=== PATIENT | female | born 1975 | race American Indian/Alaskan Native ===

== ENCOUNTER 2016-11-13 09:44 | Inpatient (IN) | payer MEDICAID ==
[2016-11-13] MEDS ORDERED: ANTIVERT PO ONE (10:10)
[2016-11-13] MEDS ORDERED: TYLENOL PO ONE (10:12)
--- NOTE | 2016-11-13 10:20 | Emergency Department Report ---
Chief Complaint: Headache Stated Complaint: CHUCK/DIZZINESS/BLURRED VISION Time Seen by Provider: 11/13/16 10:00 - Exam Vital Signs: Vital Signs 11/13/16 09:52 Temperature 98.7 F Pulse Rate 82 Respiratory 19 Rate Blood Pressure 149/103 O2 Sat by Pulse 100 Oximetry MSE screening note: Focused history and physical exam performed. Due to findings the following was ordered: ED Disposition for MSE Condition: Stable
[2016-11-13 10:43] LABS: Basophils % (Auto) 0.6 % (0.0-1.8); Eosinophils % (Auto) 1.2 % (0.0-4.3); Hematocrit 40.2 % (30.3-42.9); Hemoglobin 13.3 gm/dl (10.1-14.3); Mean Corpuscular HGB Conc 33 % (30-34); Mean Corpuscular Hemoglobin 30 pg (28-32); Mean Corpuscular Volume 90 fl (79-97); Platelet Count 226 K/mm3 (140-440); Red Blood Count 4.49 M/mm3 (3.65-5.03); Red Cell Distribution Width 14.3 % (13.2-15.2); White Blood Count 5.2 K/mm3 (4.5-11.0)
[2016-11-13 10:49] LABS: INR 0.89 (0.87-1.13)
[2016-11-13 11:02] LABS: Alanine Aminotransferase 14 units/L (7-56); Albumin 4.1 g/dL (3.9-5); Alkaline Phosphatase 105 units/L (35-129); Anion Gap 17 mmol/L; BUN/Creatinine Ratio 12.85; Bilirubin,Total 0.3 mg/dL (0.1-1.2); Blood Urea Nitrogen 9 mg/dL (7-17); Calcium 8.6 mg/dL (8.4-10.2); Carbon Dioxide 22 mmol/L (22-30); Chloride 100.2 mmol/L (98-107); Creatine Kinase 111 units/L (30-135); Glucose 89 mg/dL (65-100); Potassium 4.1 mmol/L (3.6-5.0); Sodium 135 mmol/L (137-145); Total Protein 8.3 g/dL (6.3-8.2)
[2016-11-13 11:25] LABS: Creatine Kinase MB < 1.0 ng/mL (0.0-4.0)
--- NOTE | 2016-11-13 11:59 | Cat Scan Report ---
CT HEAD WITHOUT CONTRAST: HISTORY: Syncope, Headache. Serial contiguous axial images were obtained through the cranium. Intravenous contrast material was not administered. The ventricles are normal in size and appearance. There is no mass effect or midline shift. No areas of abnormally increased or decreased attenuation are seen. No mass lesion is seen. The mastoid air cells and visualized portions of the sinuses are normal. IMPRESSION: Cranial CT scan within normal limits.
[2016-11-13] MEDS ORDERED: TYLENOL ONE (13:34)
[2016-11-13] MEDS ORDERED: ANTIVERT ONE (13:35)
[2016-11-13] MEDS ORDERED: ASPIRIN PO ONE (14:20)
--- NOTE | 2016-11-13 14:29 | Emergency Department Report ---
HPI - General Chief Complaint: Headache Time Seen by Provider: 11/13/16 14:10 - HPI HPI: Room 19 The patient is a 41-year-old female presenting with a chief complaint of syncope and dizziness. The patient states her symptoms began this morning after awakening. The patient states she was sitting in bed which began to feel dizzy developed blurred vision and head pressure. The patient's sensation and had a syncopal episode and when she awakened she still felt lightheaded. She states she began walking around and got in her car. Patient states she felt "stuck" in her car and her eyes would not move left right up or down. The patient states she drove her kids to family members house and then came to the emergency department. The patient states she had another syncopal episode upon arrival to the ED. The patient now complains of feeling dizzy and denies her headache. The patient states she had a similar episode at age 31 and was told she "almost had a stroke." Location: Head Duration: [see above] Quality: Dizziness Severity: Moderate Modifying factors: [see above] Context: [see above] Mode of transportation: Driving ED Past Medical Hx - Past Medical History Hx Hypertension: Yes Additional medical history: ANEMIA - Surgical History Additional Surgical History: HYSTERECTOMY/ CS X2/ 1X. tummy tuck - Family History Family history: no significant - Social History Smoking Status: Never Smoker Substance Use Type: None - Medications Home Medications: Home Medications Medication Instructions Recorded Confirmed Last Taken Type Cyclobenzaprine [Flexeril] 10 mg PO TID PRN #15 tablet 06/17/16 Unknown Rx Hydrochlorothiazide [Hctz] 12.5 mg PO QDAY 06/17/16 06/17/16 Unknown History HYDROcodone/APAP 5-325 [[place] 1 - 2 each PO Q6HR PRN #14 tablet 11/01/16 Unknown Rx 5/325] Promethazine [Phenergan TAB] 25 mg PO Q6HR PRN #20 tab 11/01/16 Unknown Rx Promethazine [Phenergan] 25 mg [place] Q6HR PRN #5 supp.rect 11/01/16 Unknown Rx metroNIDAZOLE [Flagyl] 500 mg PO Q8HR #21 tablet 11/01/16 Unknown Rx ED Review of Systems ROS: Stated complaint: CHUCK/DIZZINESS/BLURRED VISION Other details as noted in HPI Comment: All other systems reviewed and negative Constitutional: denies: chills, fever Eyes: vision change. denies: eye pain, eye discharge ENT: denies: ear pain, throat pain Respiratory: denies: cough, shortness of breath, wheezing Cardiovascular: denies: chest pain, palpitations Endocrine: no symptoms reported Gastrointestinal: denies: abdominal pain, nausea, diarrhea Genitourinary: denies: urgency, dysuria, discharge Musculoskeletal: denies: back pain, joint swelling, arthralgia Skin: denies: rash, lesions Neurological: headache, vertigo Psychiatric: denies: anxiety, depression Hematological/Lymphatic: denies: easy bleeding, easy bruising Physical Exam - Physical Exam Vital Signs: Vital Signs 11/13/16 11/13/16 09:52 13:44 Temperature 98.7 F 97.6 F Pulse Rate 82 70 Respiratory 19 16 Rate Blood Pressure 149/103 Blood Pressure 132/86 [Left] O2 Sat by Pulse 100 100 Oximetry Physical Exam: GENERAL: The patient is well-developed well-nourished female lying on stretcher with eyes closed appearing to be in mild discomfort. [] HEENT: Normocephalic. Atraumatic. Extraocular motions are intact. Patient has moist mucous membranes. No nystagmus NECK: Supple. No meningitic signs are noted. There is no adenopathy noted. CHEST/LUNGS: Clear to auscultation. There is no respiratory distress noted. HEART/CARDIOVASCULAR: Regular. There is no tachycardia. There is no gallop rub or murmur. ABDOMEN: Abdomen is soft, nontender. Patient has normal bowel sounds. There is no abdominal distention. SKIN: There is no rash. There is no edema. There is no diaphoresis. NEURO: The patient is awake, alert, and oriented. The patient is cooperative. Cranial nerves II through XII grossly intact. Decreased starcher and tenter range feeder on the left (3+/5 ) 5+/5 on the right. Decreased sensation left upper extremity. The patient has normal speech MUSCULOSKELETAL: There is no evidence of acute injury. ED Course Vital Signs 11/13/16 11/13/16 09:52 13:44 Temperature 98.7 F 97.6 F Pulse Rate 82 70 Respiratory 19 16 Rate Blood Pressure 149/103 Blood Pressure 132/86 [Left] O2 Sat by Pulse 100 100 Oximetry ED Medical Decision Making - Lab Data Result diagrams: 11/13/16 10:21 11/13/16 10:21 Laboratory Tests 11/13/16 11/13/16 11/13/16 10:21 10:21 10:21 WBC 5.2 RBC 4.49 Hgb 13.3 Hct 40.2 MCV 90 MCH 30 MCHC 33 RDW 14.3 Plt Count 226 Lymph % (Auto) 34.0 [place] % (Auto) 6.1 Eos % (Auto) 1.2 Baso % (Auto) 0.6 Lymph # 1.8 [place] # 0.3 Eos # 0.1 Baso # 0.0 Seg Neutrophils % 58.1 Seg Neutrophils # 3.0 PT 11.9 L INR 0.89 Sodium 135 L Potassium 4.1 Chloride 100.2 Carbon Dioxide 22 Anion Gap 17 BUN 9 Creatinine 0.7 Estimated GFR > 60 BUN/Creatinine Ratio 12.85 Glucose 89 Lactic Acid Calcium 8.6 Total Bilirubin 0.3 AST 17 ALT 14 Alkaline Phosphatase 105 Total Creatine Kinase 111 CK-MB (CK-2) < 1.0 CK-MB (CK-2) Rel Index 0.9 Troponin T Total Protein 8.3 H Albumin 4.1 Albumin/Globulin Ratio 1.0 HCG, Qual 11/13/16 11/13/16 11/13/16 10:21 10:21 10:33 WBC RBC Hgb Hct MCV MCH MCHC RDW Plt Count Lymph % (Auto) [place] % (Auto) Eos % (Auto) Baso % (Auto) Lymph # [place] # Eos # Baso # Seg Neutrophils % Seg Neutrophils # PT INR Sodium Potassium Chloride Carbon Dioxide Anion Gap BUN Creatinine Estimated GFR BUN/Creatinine Ratio Glucose Lactic Acid 1.0 Calcium Total Bilirubin AST ALT Alkaline Phosphatase Total Creatine Kinase CK-MB (CK-2) CK-MB (CK-2) Rel Index Troponin T < 0.010 Total Protein Albumin Albumin/Globulin Ratio HCG, Qual Negative - EKG Data -: EKG Interpreted by Ms EKG shows normal: sinus rhythm Rate: normal - EKG Data When compared to previous EKG there are: previous EKG unavailable Interpretation: nonspecific ST-T wave earnest (T-wave inversion in lead 3) - Radiology Data Radiology results: report reviewed (CT head), image reviewed (CT head) CT head (read by radiologist)-cranial CT scan within normal limits - Differential Diagnosis vertigo, vasovagal syncope, ICH, dysrhythmia, CVA Critical care attestation.: If time is entered above; I have spent that time in minutes in the direct care of this critically ill patient, excluding procedure time. ED Disposition Clinical Impression: Syncope, Dizziness, Left arm weakness Disposition: OP ADMITTED IP TO THIS HOSP Is pt being admited?: Yes Does the pt Need Aspirin: Yes Condition: Fair Instructions: Syncope (ED) Referrals: PRIMARY CARE, [Primary Care Provider] - 3-5 Days Time of Disposition: 15:04 (hospitalist notified)
--- NOTE | 2016-11-13 14:37 | Admit Criteria Form ---
Admission Criteria Documentation: SYNCOPE Clinical Indications for Admission to Inpatient Care ( Place 'X' for any and all applicable criteria): Admission is indicated for syncope and ANY ONE of the following (1)(2)(3)(4)(5) (6)(7) : [ X]I. Inpatient admission required rather than observation care (Also use Syncope: Observation Care Criteria as appropriate) because of ANY ONE of the following: [ ]a) Hemodynamic instability that is severe or persistent [ ]b) Cardiac arrhythmias of immediate concern identified or strongly suspected (eg, needs electrophysiologic study) [ ]c) Acute coronary syndrome identified (Also use Myocardial Infarction or Angina Criteria form ) [ ]d) Structural cardiac disorder (eg, aortic stenosis) suspected as cause that requires immediate correction [ ]e) Respiratory symptoms (eg, dyspnea, tachypnea) that are severe or persistent [ ]f) Neurologic signs or symptoms that are severe or persistent ( eg, stroke, seizures, altered mental status) [ ]g) Severe electrolyte abnormalities requiring inpatient care [ ]h) Supplemental oxygen or respiratory treatment for over 24 hrs that are performable only in acute inpatient setting [ ]i) IV fluid to replace significant ongoing (eg, for over 24 hrs ) losses (>3 L/m2 per day) [ ]j) Continuous intravenous infusion of anticoagulation, platelet inhibitor, vasoactive, or antiarrhythmic medication(15)(16) [ ]k) Pulmonary artery catheter monitoring [ ]l) Temporary pacemaker placement(17) [ ]m) Emergent cardioversion(18) [X ]n) Other conditions, treatment or monitoring requiring inpatient admission [ ]II. Suspicion of imminently dangerous cause (eg, rare causes like pericardial tamponade, pulmonary embolism) [ ]III. Syncope causing severe injury requiring hospitalization Extended stay beyond goal length of stay may be needed for(28) [ ]a) Dangerous arrhythmia(15)(23)(27)(29) [ ]b) Myocardial ischemia [ ]c) Seizure disorder [ ]d) Syncope-related injuries The original [employer] content created by [employer] has been revised. The portions of the content which have been revised are identified through the use of italic text or in bold, and [employer] has neither reviewed nor approved the modified material. All other unmodified content is copyright [facility] [employer]. Please see references footnoted in the original [facility] edition 2016 Admission Criteria Met: Yes
[2016-11-13 15:05] LABS: Urine Drugs of Abuse Note Disclamer
[2016-11-13 15:16] LABS: Bilirubin,Urine NEG (Negative); Blood,Urine SM (Negative); Ketones,Urine NEG (Negative); Leukocyte Esterase,Urine NEG (Negative); Mucus,Urine FEW /HPF; Nitrite,Urine NEG (Negative); Protein,Urine <15 mg/dL mg/dL (Negative); Urobilinogen,Urine < 2.0 mg/dL (<2.0)
[2016-11-13 15:18] LABS: WBC,Urine < 1.0 /HPF (0.0-6.0)
[2016-11-13] MEDS ORDERED: SODIUM CHLORIDE FLUSH SYRINGE 10 ML IV PRN (15:32)
[2016-11-13] MEDS ORDERED: MILK OF MAGNESIA PO PRN (15:32)
[2016-11-13] MEDS ORDERED: ZOFRAN IV PRN (15:32)
[2016-11-13] MEDS ORDERED: DULCOLAX PR PRN (15:32)
[2016-11-13] MEDS ORDERED: TYLENOL PO PRN (15:32)
[2016-11-13] MEDS ORDERED: PHENERGAN PR PRN (15:32)
[2016-11-13] MEDS ORDERED: REGLAN PO PRN (15:32)
[2016-11-13] MEDS ORDERED: NORMODYNE IV PRN (15:37)
--- NOTE | 2016-11-13 15:52 | History and Physical Report ---
History of Present Illness Chief complaint: Syncope History of present illness: Nereyda is a 41-year-old woman with a past medical history of hypertension who presents with syncope 1 day. She notes that shortly after waking up she was feeling dizzy, she had some pressure in her head and some blurred vision and then she passed out while sitting in a chair. After this she began walking around got into her car and then she drove her kids to family members house boss was in the car she did not quite feel herself she felt that she was stuck in her own body spell that she could not move her eyes light right left or up and down, she then drove herself to the hospital and she thinks she has some right-sided weakness in her right upper extremity. she also states that she had similar symptoms about 10 years ago and she was told then that she had almost had a stroke. At this point she does not have headache but she continues to complain of dizziness. Past History Past Medical History: other Past Surgical History: (hypertension), Other (tubal ligation, , tummy tuck) Social history: no significant social history Family history: no significant family history Medications and Allergies Allergies Allergy/AdvReac Type Severity Reaction Status Date / Time No Known Allergies Allergy Verified 07/13/15 10:14 Home Medications Medication Instructions Recorded Confirmed Last Taken Type Cyclobenzaprine [Flexeril] 10 mg PO TID PRN #15 tablet 06/17/16 Unknown Rx Hydrochlorothiazide [Hctz] 12.5 mg PO QDAY 06/17/16 06/17/16 Unknown History HYDROcodone/APAP 5-325 [[place] 1 - 2 each PO Q6HR PRN #14 tablet 11/01/16 Unknown Rx 5/325] Promethazine [Phenergan TAB] 25 mg PO Q6HR PRN #20 tab 11/01/16 Unknown Rx Promethazine [Phenergan] 25 mg [place] Q6HR PRN #5 supp.rect 11/01/16 Unknown Rx metroNIDAZOLE [Flagyl] 500 mg PO Q8HR #21 tablet 11/01/16 Unknown Rx Active Meds: Active Medications Acetaminophen (Tylenol) 650 mg PO Q4H PRN PRN Reason: Pain, Mild (1-3) Bisacodyl (Dulcolax) 10 mg NJ QDAY PRN PRN Reason: Constipation Labetalol HCl (Normodyne) 5 mg IV Q4H PRN PRN Reason: BP >180/110 Magnesium Hydroxide (Milk Of Magnesia) 30 ml PO Q4H PRN PRN Reason: Constipation Metoclopramide HCl (Reglan) 10 mg PO Q6H PRN PRN Reason: Nausea And Vomiting Ondansetron HCl (Zofran) 4 mg IV Q8H PRN PRN Reason: N/V unrelieved by Reglan Promethazine HCl (Phenergan) 25 mg NJ Q6H PRN PRN Reason: Nausea And Vomiting Simvastatin (Zocor) 20 mg PO QHS MICHELLE Sodium Chloride (Sodium Chloride Flush Syringe 10 Ml) 10 ml INJ PRN PRN PRN Reason: LINE FLUSH Review of Systems All systems: negative (as stated in HPI) Exam - Constitutional Vitals: Temp Pulse Resp BP Pulse Ox 97.6 F 70 16 132/86 100 11/13/16 13:44 11/13/16 13:44 11/13/16 13:44 11/13/16 13:44 11/13/16 13:44 General appearance: Present: no acute distress, well-nourished - EENT Eyes: Present: PERRL ENT: hearing intact, clear oral mucosa - Neck Neck: Present: supple, normal ROM - Respiratory Respiratory effort: normal Respiratory: bilateral: CTA - Cardiovascular Heart Sounds: Present: S1 & S2. Absent: rub, click - Extremities Extremities: pulses symmetrical, No edema Peripheral Pulses: within normal limits - Abdominal General gastrointestinal: Present: soft, non-tender, non-distended, normal bowel sounds Female genitourinary: Present: normal - Integumentary Integumentary: Present: clear, warm, dry - Musculoskeletal Musculoskeletal: gait normal, strength equal bilaterally - Psychiatric Psychiatric: appropriate mood/affect, intact judgment & insight - Neurologic Neurologic: CNII-XII intact, moves all extremities Results - Labs CBC & Chem 7: 11/13/16 10:21 11/13/16 10:21 Labs: Laboratory Last Values WBC 5.2 K/mm3 (4.5-11.0) 11/13/16 10:21 RBC 4.49 M/mm3 (3.65-5.03) 11/13/16 10:21 Hgb 13.3 gm/dl (10.1-14.3) 11/13/16 10:21 Hct 40.2 % (30.3-42.9) 11/13/16 10:21 MCV 90 fl (79-97) 11/13/16 10:21 MCH 30 pg (28-32) 11/13/16 10:21 MCHC 33 % (30-34) 11/13/16 10:21 RDW 14.3 % (13.2-15.2) 11/13/16 10:21 Plt Count 226 K/mm3 (140-440) 11/13/16 10:21 Lymph % (Auto) 34.0 % (13.4-35.0) 11/13/16 10:21 [place] % (Auto) 6.1 % (0.0-7.3) 11/13/16 10:21 Eos % (Auto) 1.2 % (0.0-4.3) 11/13/16 10:21 Baso % (Auto) 0.6 % (0.0-1.8) 11/13/16 10:21 Lymph # 1.8 K/mm3 (1.2-5.4) 11/13/16 10:21 [place] # 0.3 K/mm3 (0.0-0.8) 11/13/16 10:21 Eos # 0.1 K/mm3 (0.0-0.4) 11/13/16 10:21 Baso # 0.0 K/mm3 (0.0-0.1) 11/13/16 10:21 Seg Neutrophils % 58.1 % (40.0-70.0) 11/13/16 10:21 Seg Neutrophils # 3.0 K/mm3 (1.8-7.7) 11/13/16 10:21 PT 11.9 Sec. (12.2-14.9) L 11/13/16 10:21 INR 0.89 (0.87-1.13) 11/13/16 10:21 Sodium 135 mmol/L (137-145) L 11/13/16 10:21 Potassium 4.1 mmol/L (3.6-5.0) 11/13/16 10:21 Chloride 100.2 mmol/L (98-107) 11/13/16 10:21 Carbon Dioxide 22 mmol/L (22-30) 11/13/16 10:21 Anion Gap 17 mmol/L 11/13/16 10:21 BUN 9 mg/dL (7-17) 11/13/16 10:21 Creatinine 0.7 mg/dL (0.7-1.2) 11/13/16 10:21 Estimated GFR > 60 ml/min 11/13/16 10:21 BUN/Creatinine Ratio 12.85 % 11/13/16 10:21 Glucose 89 mg/dL (65-100) 11/13/16 10:21 Lactic Acid 1.0 mmol/L (0.7-2.0) 11/13/16 10:21 Calcium 8.6 mg/dL (8.4-10.2) 11/13/16 10:21 Total Bilirubin 0.3 mg/dL (0.1-1.2) 11/13/16 10:21 AST 17 units/L (5-40) 11/13/16 10:21 ALT 14 units/L (7-56) 11/13/16 10:21 Alkaline Phosphatase 105 units/L (35-129) 11/13/16 10:21 Total Creatine Kinase 111 units/L (30-135) 11/13/16 10:21 CK-MB (CK-2) < 1.0 ng/mL (0.0-4.0) 11/13/16 10:21 CK-MB (CK-2) Rel Index 0.9 (0-4) 11/13/16 10:21 Troponin T < 0.010 ng/mL (0.00-0.029) 11/13/16 10:21 Total Protein 8.3 g/dL (6.3-8.2) H 11/13/16 10:21 Albumin 4.1 g/dL (3.9-5) 11/13/16 10:21 Albumin/Globulin Ratio 1.0 % 11/13/16 10:21 HCG, Qual Negative (Negative) 11/13/16 10:33 Urine Color Straw (Yellow) 11/13/16 14:51 Urine Turbidity Clear (Clear) 11/13/16 14:51 Urine pH 7.0 (5.0-7.0) 11/13/16 14:51 Ur Specific [place] 1.008 (1.003-1.030) 11/13/16 14:51 Urine Protein <15 mg/dl mg/dL (Negative) 11/13/16 14:51 Urine Glucose (UA) Neg mg/dL (Negative) 11/13/16 14:51 Urine Ketones Neg mg/dL (Negative) 11/13/16 14:51 Urine Blood Sm (Negative) 11/13/16 14:51 Urine Nitrite Neg (Negative) 11/13/16 14:51 Urine Bilirubin Neg (Negative) 11/13/16 14:51 Urine Urobilinogen < 2.0 mg/dL (<2.0) 11/13/16 14:51 Ur Leukocyte Esterase Neg (Negative) 11/13/16 14:51 Urine WBC (Auto) < 1.0 /HPF (0.0-6.0) 11/13/16 14:51 Urine RBC (Auto) 1.0 /HPF (0.0-6.0) 11/13/16 14:51 U Epithel Cells (Auto) 2.0 /HPF (0-13.0) 11/13/16 14:51 Urine Mucus Few /HPF 11/13/16 14:51 Urine Opiates Screen Presumptive negative 11/13/16 14:51 Urine Methadone Screen Presumptive negative 11/13/16 14:51 Ur Barbiturates Screen Presumptive negative 11/13/16 14:51 Ur Phencyclidine Scrn Presumptive negative 11/13/16 14:51 Ur Amphetamines Screen Presumptive negative 11/13/16 14:51 U Benzodiazepines Scrn Presumptive negative 11/13/16 14:51 Urine Cocaine Screen Presumptive negative 11/13/16 14:51 U Marijuana (THC) Screen Presumptive negative 11/13/16 14:51 Drugs of Abuse Note Disclamer 11/13/16 14:51 - Imaging and Cardiology CT Scan - head: image reviewed (no abnormalities noted) Assessment and Plan Assessment and plan: 41-year-old woman with a past medical history of hypertension who presents with syncope and parents left-sided weakness 1. Syncope This most likely vasovagal in nature, however will discontinue sedating medications that she is always include Flexeril and [place] and Phenergan. Given that she had a transient episode of left upper extremity weakness in the ER will obtain MRI and MRA brain. Will also obtain echocardiogram to rule out cardiogenic source of syncope 2. Hypertension Allow permissive hypertension, as she is being worked up for TIA.
--- NOTE | 2016-11-13 18:57 | Magnetic Resonance Report ---
FINAL REPORT EXAM: MR MRA/MRV HEAD WO CON HISTORY: stroke TECHNIQUE: MRA of the head was performed utilizing time of flight imaging. PRIORS: None. FINDINGS: The vertebrobasilar system is patent. No focal stenotic lesion is identified. Posterior communicating artery is identified on the right. Posterior cerebral arteries are patent, bilaterally. The distal internal carotid arteries, middle cerebral arteries and anterior cerebral arteries are patent, bilaterally. The distal internal carotid arteries, middle cerebral arteries and anterior cerebral arteries are patent, bilaterally. No major branch occlusion is identified. IMPRESSION: 1. No major branch occlusion is identified. The patient can be further assessed with MRI of the brain with diffusion-weighted imaging if indicated.
--- NOTE | 2016-11-13 19:07 | Magnetic Resonance Report ---
FINAL REPORT EXAM: MR BRAIN WO CON HISTORY: stroke TECHNIQUE: Multi sequence multi planar MR images obtained of the brain without gadolinium. PRIORS: None. FINDINGS: There is no mass effect or midline shift. There are no abnormal intra or extra-axial fluid collections. Cortical sulci and lateral ventricles are normal in size and configuration. The brainstem and cerebellum appear within normal limits. Subcentimeter foci of hyperintense FLAIR signal are seen in the white matter of the cerebral hemispheres. Diffusion-weighted imaging does not show definite evidence of acute or subacute infarct. There are flow voids indicating patency seen in the major vascular structures. There is flattening of the pituitary gland on the floor of the sella. Orbits appear normal and symmetric. Paranasal sinuses appear clear. The craniocervical junction appears normal. IMPRESSION: 1. Diffusion-weighted imaging does not show definite evidence of acute or subacute infarct. 2. Foci of hyperintense FLAIR signal are seen in the white matter of the cerebral hemispheres. This is a nonspecific finding. It may be related to chronic ischemic change from small vessel disease.
[2016-11-13] MEDS: ZOCOR PO SCH (23:43)
--- NOTE | 2016-11-14 08:23 | Discharge Summary ---
Providers - Providers Date of Admission: 11/13/16 15:05 Date of discharge: 11/14/16 Attending physician: BRYANNA FLAHERTY MD 11/13/16 15:32 Consult to Dietitian/Nutrition [CONS] Routine Physician Instructions: Reason For Exam: Reason for Consult: Nutrition Recommendations Reason for Consult: Diet education Occupational Therapy Evaluate and Treat [CONS] Routine Comment: Reason For Exam: Neuro deficits Physical Therapy Evaluation and Treat [CONS] Routine Comment: Reason For Exam: Neuro deficits Primary care physician: [employer] Hospitalization Condition: Stable Disposition: DISCHARGED TO HOME OR SELFCARE Time spent for discharge: 35 mins Core Measure Documentation - Palliative Care Palliative Care/ Comfort Measures: Not Applicable - Core Measures Any of the following diagnoses?: none - VTE Discharge Requirements Deep Vein Thrombosis/Pulmonary Embolism Present on Admission: No Exam - Constitutional Vitals: Temp Pulse Resp BP Pulse Ox 97.9 F 65 20 104/68 100 11/13/16 21:45 11/13/16 21:45 11/13/16 21:45 11/13/16 21:45 11/13/16 21:45 Plan Activity: advance as tolerated, fall precautions Diet: low fat Follow up with: PRIMARY CAREMD [Primary Care Provider] - 3-5 Days
--- NOTE | 2016-11-14 12:08 | Event Note ---
Date: 11/14/16 I attempted to see this patient at 11 AM and 12PM today but she was off the floor for testing-Echo as I was told by charge nurse. I will be able to staff in consult as needed 11/15 between 8 AM-12 PM.
--- NOTE | 2016-11-14 15:39 | Progress Note ---
Assessment and Plan Assessment and plan: Nereyda is a 41-year-old woman with a past medical history of hypertension who presents with syncope 1 day. She notes that shortly after waking up she was feeling dizzy, she had some pressure in her head and some blurred vision and then she passed out while sitting in a chair. After this she began walking around got into her car and then she drove her kids to family members house boss was in the car she did not quite feel herself she felt that she was stuck in her own body spell that she could not move her eyes light right left or up and down, she then drove herself to the hospital and she thinks she has some right-sided weakness in her right upper extremity. she also states that she had similar symptoms about 10 years ago and she was told then that she had almost had a stroke. At this point she does not have headache but she continues to complain of dizziness. 1. Syncope This most likely vasovagal in nature, continue to hold all sedating medications that she is always include Flexeril and Dixon and Phenergan. Given that she had a transient episode of left upper extremity weakness in the ER MRI and MRA brain obtained and was negative. Echocardiogram is pending. 2. Persistent vertigo. There is no imaging study of the brain no evidence of stroke. Question hemiplegic migraine considering association with headache and light. We'll obtain neurology evaluation. The patient also is to discharge this time as she is unsteady on his feet. We'll also give a trial of meclizine. Check orthostatic vitals. 3. Hypertension No evidence of TIA blood pressure well-controlled continue to monitor. Plan of care Discussed with the patient in detail Also with neurologist History Interval history: Patient seen and examined this morning in no acute distress. Still complains of dizziness unable to stand unassisted. Initially denied headaches but that she does have intermittent headaches. Denies any chest pain, nausea, vomiting, diarrhea No fever noted blood pressure controlled No adverse events reported to me by nursing staff Hospitalist Physical - Physical exam Narrative exam: VITAL SIGNS: Reviewed. GENERAL: The patient appeared well nourished and normally developed. Vital signs as documented. HEAD: No signs of head trauma. EYES: Could not adequately examine patient states that the light bothers her. EARS: Hearing grossly intact. MOUTH: Oropharynx is normal. NECK: No adenopathy, no JVD. CHEST: Chest with clear breath sounds bilaterally. No wheezes, rales, or rhonchi. CARDIAC: Regular rate and rhythm. S1 and S2, without murmurs, gallops, or rubs. VASCULAR: No Edema. Peripheral pulses normal and equal in all extremities. ABDOMEN: Soft, without detectable tenderness. No sign of distention. No rebound or guarding, and no masses palpated. Bowel Sounds normal. MUSCULOSKELETAL: Good range of motion of all major joints. Extremities without clubbing, cyanosis or edema. NEUROLOGIC EXAM: Alert and oriented x 3. No focal sensory or strength deficits. Unable to stand unassisted. Refused pupillary exam. Speech normal. Follows commands. PSYCHIATRIC: Mood normal. SKIN: No rash or lesions. - Constitutional Vitals: Temp Pulse Resp BP Pulse Ox 97.2 F L 75 18 130/100 100 11/14/16 11:30 11/14/16 11:30 11/14/16 11:30 11/14/16 12:00 11/14/16 11:30 General appearance: Present: no acute distress, well-nourished Results - Labs CBC & Chem 7: 11/13/16 10:21 11/13/16 10:21 Labs: Laboratory Last Values WBC 5.2 K/mm3 (4.5-11.0) 11/13/16 10:21 RBC 4.49 M/mm3 (3.65-5.03) 11/13/16 10:21 Hgb 13.3 gm/dl (10.1-14.3) 11/13/16 10:21 Hct 40.2 % (30.3-42.9) 11/13/16 10:21 MCV 90 fl (79-97) 11/13/16 10:21 MCH 30 pg (28-32) 11/13/16 10:21 MCHC 33 % (30-34) 11/13/16 10:21 RDW 14.3 % (13.2-15.2) 11/13/16 10:21 Plt Count 226 K/mm3 (140-440) 11/13/16 10:21 Lymph % (Auto) 34.0 % (13.4-35.0) 11/13/16 10:21 Gladwin % (Auto) 6.1 % (0.0-7.3) 11/13/16 10:21 Eos % (Auto) 1.2 % (0.0-4.3) 11/13/16 10:21 Baso % (Auto) 0.6 % (0.0-1.8) 11/13/16 10:21 Lymph # 1.8 K/mm3 (1.2-5.4) 11/13/16 10:21 Gladwin # 0.3 K/mm3 (0.0-0.8) 11/13/16 10:21 Eos # 0.1 K/mm3 (0.0-0.4) 11/13/16 10:21 Baso # 0.0 K/mm3 (0.0-0.1) 11/13/16 10:21 Seg Neutrophils % 58.1 % (40.0-70.0) 11/13/16 10:21 Seg Neutrophils # 3.0 K/mm3 (1.8-7.7) 11/13/16 10:21 PT 11.9 Sec. (12.2-14.9) L 11/13/16 10:21 INR 0.89 (0.87-1.13) 11/13/16 10:21 Sodium 135 mmol/L (137-145) L 11/13/16 10:21 Potassium 4.1 mmol/L (3.6-5.0) 11/13/16 10:21 Chloride 100.2 mmol/L (98-107) 11/13/16 10:21 Carbon Dioxide 22 mmol/L (22-30) 11/13/16 10:21 Anion Gap 17 mmol/L 11/13/16 10:21 BUN 9 mg/dL (7-17) 11/13/16 10:21 Creatinine 0.7 mg/dL (0.7-1.2) 11/13/16 10:21 Estimated GFR > 60 ml/min 11/13/16 10:21 BUN/Creatinine Ratio 12.85 % 11/13/16 10:21 Glucose 89 mg/dL (65-100) 11/13/16 10:21 POC Glucose 85 (70-105) 11/14/16 12:23 Lactic Acid 1.0 mmol/L (0.7-2.0) 11/13/16 10:21 Calcium 8.6 mg/dL (8.4-10.2) 11/13/16 10:21 Total Bilirubin 0.3 mg/dL (0.1-1.2) 11/13/16 10:21 AST 17 units/L (5-40) 11/13/16 10:21 ALT 14 units/L (7-56) 11/13/16 10:21 Alkaline Phosphatase 105 units/L (35-129) 11/13/16 10:21 Total Creatine Kinase 111 units/L (30-135) 11/13/16 10:21 CK-MB (CK-2) < 1.0 ng/mL (0.0-4.0) 11/13/16 10:21 CK-MB (CK-2) Rel Index 0.9 (0-4) 11/13/16 10:21 Troponin T < 0.010 ng/mL (0.00-0.029) 11/13/16 10:21 Total Protein 8.3 g/dL (6.3-8.2) H 11/13/16 10:21 Albumin 4.1 g/dL (3.9-5) 11/13/16 10:21 Albumin/Globulin Ratio 1.0 % 11/13/16 10:21 Triglycerides 202 mg/dL (2-149) H 11/14/16 04:59 Cholesterol 162 mg/dL (50-199) 11/14/16 04:59 LDL Cholesterol Direct 88 mg/dL (50-130) 11/14/16 04:59 HDL Cholesterol 34 mg/dL (40-59) L 11/14/16 04:59 Cholesterol/HDL Ratio 4.76 % 11/14/16 04:59 HCG, Qual Negative (Negative) 11/13/16 10:33 Urine Color Straw (Yellow) 11/13/16 14:51 Urine Turbidity Clear (Clear) 11/13/16 14:51 Urine pH 7.0 (5.0-7.0) 11/13/16 14:51 Ur Specific [place] 1.008 (1.003-1.030) 11/13/16 14:51 Urine Protein <15 mg/dl mg/dL (Negative) 11/13/16 14:51 Urine Glucose (UA) Neg mg/dL (Negative) 11/13/16 14:51 Urine Ketones Neg mg/dL (Negative) 11/13/16 14:51 Urine Blood Sm (Negative) 11/13/16 14:51 Urine Nitrite Neg (Negative) 11/13/16 14:51 Urine Bilirubin Neg (Negative) 11/13/16 14:51 Urine Urobilinogen < 2.0 mg/dL (<2.0) 11/13/16 14:51 Ur Leukocyte Esterase Neg (Negative) 11/13/16 14:51 Urine WBC (Auto) < 1.0 /HPF (0.0-6.0) 11/13/16 14:51 Urine RBC (Auto) 1.0 /HPF (0.0-6.0) 11/13/16 14:51 U Epithel Cells (Auto) 2.0 /HPF (0-13.0) 11/13/16 14:51 Urine Mucus Few /HPF 11/13/16 14:51 Urine Opiates Screen Presumptive negative 11/13/16 14:51 Urine Methadone Screen Presumptive negative 11/13/16 14:51 Ur Barbiturates Screen Presumptive negative 11/13/16 14:51 Ur Phencyclidine Scrn Presumptive negative 11/13/16 14:51 Ur Amphetamines Screen Presumptive negative 11/13/16 14:51 U Benzodiazepines Scrn Presumptive negative 11/13/16 14:51 Urine Cocaine Screen Presumptive negative 11/13/16 14:51 U Marijuana (THC) Screen Presumptive negative 11/13/16 14:51 Drugs of Abuse Note Disclamer 11/13/16 14:51 - Imaging and Cardiology Imaging and Cardiology: Echocardiogram ordered and pending.
[2016-11-14] MEDS: ANTIVERT PO PRN (19:10)
[2016-11-14] MEDS: NACL 0.9% 1000 ML 1,000 ML IV SCH (19:11)
[2016-11-14] MEDS: ZOCOR PO SCH (21:27)
[2016-11-15] MEDS: ANTIVERT PO PRN (05:58)
[2016-11-15] MEDS: NACL 0.9% 1000 ML 1,000 ML IV SCH (08:37)
--- NOTE | 2016-11-15 09:15 | Discharge Summary ---
Providers - Providers Date of Admission: 11/13/16 15:05 Date of discharge: 11/15/16 Attending physician: AURELIANO MOREAU 11/13/16 15:32 Consult to Dietitian/Nutrition [CONS] Routine Physician Instructions: Reason For Exam: Reason for Consult: Nutrition Recommendations Reason for Consult: Diet education Occupational Therapy Evaluate and Treat [CONS] Routine Comment: Reason For Exam: Neuro deficits Physical Therapy Evaluation and Treat [CONS] Routine Comment: Reason For Exam: Neuro deficits 11/14/16 09:30 Consult to Physician [CONS] Routine Consulting Provider: ZENON BLANC Reason For Exam: SEVERE VERTIG[facility] Place consult to:: rufus Notified:: answering machine Phone number called:: [phone] Was contact made?: No Time called:: 10:49 11/14/16 09:33 Occupational Therapy Evaluate and Treat [CONS] Routine Comment: Reason For Exam: VESTIBULAR TRAINING Primary care physician: DIRECTOR OF CLINICAL SERVICES Hospitalization Condition: Stable Hospital course: Nereyda is a 41-year-old woman with a past medical history of hypertension who presented with syncope 1 day. She noted that shortly after waking up she was feeling dizzy, she had some pressure in her head and some blurred vision and then she passed out while sitting in a chair. The syncope was felt to be most likely vasovagal in nature. Patient reportedly had a transient episode of left upper extremity weakness as noted above. MRI/MRA was obtained and found to be negative. There was a question of hemiplegic migraine considering association with headache and light. Neurology saw the patient in consultation and felt that the symptoms were consistent with benign positional vertigo with unclear laterality. Patient was treated with meclizine 25 mg 3 times a day and Valium 2 mg 3 times a day when necessary. Dedicated discharge time 35 minutes. Follow -up with neurology as an outpatient. Disposition: DISCHARGED TO HOME OR SELFCARE - Discharge Diagnoses (1) Dizziness Status: Acute (2) Syncope Status: Acute Qualifiers: Syncope type: S Encounter type: E (3) Nausea & vomiting Status: Acute Qualifiers: Vomiting type: V Vomiting Intractability: V Core Measure Documentation - Palliative Care Palliative Care/ Comfort Measures: Not Applicable - Core Measures Any of the following diagnoses?: none Exam - Constitutional Vitals: Temp Pulse Resp BP Pulse Ox 98.3 F 78 16 110/60 97 11/15/16 07:59 11/15/16 07:59 11/15/16 07:59 11/15/16 07:59 11/15/16 07:59 General appearance: Present: no acute distress, well-nourished - EENT Eyes: Present: PERRL ENT: hearing intact, clear oral mucosa - Neck Neck: Present: supple, normal ROM - Respiratory Respiratory effort: normal Respiratory: bilateral: CTA - Cardiovascular Heart Sounds: Present: S1 & S2. Absent: rub, click - Extremities Extremities: pulses symmetrical, No edema Peripheral Pulses: within normal limits - Abdominal General gastrointestinal: Present: soft, non-tender, non-distended, normal bowel sounds Female genitourinary: Present: normal - Integumentary Integumentary: Present: clear, warm, dry - Musculoskeletal Musculoskeletal: gait normal, strength equal bilaterally - Psychiatric Psychiatric: appropriate mood/affect, intact judgment & insight - Neurologic Neurologic: CNII-XII intact, moves all extremities Plan Activity: advance as tolerated Weight Bearing Status: Full Weight Bearing Diet: regular Follow up with: PRIMARY CAREMD [Primary Care Provider] - 3-5 Days ZENON BLANC MD [Staff Physician] - 7 Days Prescriptions: Diazepam Tab [Valium] 2 mg PO Q8H PRN #60 tablet PRN Reason: Vertigo Meclizine [Antivert] 25 mg PO Q8H PRN #60 tablet PRN Reason: Vertigo
[2016-11-15] MEDS ORDERED: VALIUM PO PRN (09:34)
--- NOTE | 2016-11-15 09:40 | Consultation ---
History of Present Illness Consult date: 11/15/16 Requesting physician: BRYANNA FLAHERTY Reason for Consult: vertigo Chief complaint: dizziness History of present illness: 41 YO F Hx new onset dizziness described as sense of "movement" affirmed dizziness onset 11/13 @ 6 AM when getting out of bed. Sx are intermittent lasting mins to hours. Sx recurrently triggered by head/body position movement/ change. Sx relieved by rest. There are no other temporal factors. Severity such to limit ambulation. Past History Past Medical History: hypertension Past Surgical History: (hypertension), Other (tubal ligation, , tummy tuck) Social history: single, lives with family. denies: smoking, alcohol abuse, prescription drug abuse Family history: no significant family history Medications and Allergies Allergies Allergy/AdvReac Type Severity Reaction Status Date / Time No Known Allergies Allergy Verified 07/13/15 10:14 Home Medications Medication Instructions Recorded Confirmed Last Taken Type Hydrochlorothiazide [HCTZ] 12.5 mg PO QDAY 06/17/16 11/13/16 Unknown History Active Meds: Active Medications Acetaminophen (Tylenol) 650 mg PO Q4H PRN PRN Reason: Pain, Mild (1-3) Last Admin: 11/14/16 15:03 Dose: 650 mg Bisacodyl (Dulcolax) 10 mg SC QDAY PRN PRN Reason: Constipation Diazepam (Valium) 2 mg PO Q8H PRN PRN Reason: Vertigo Sodium Chloride (Nacl 0.9% 1000 Ml) 1,000 mls @ 75 mls/hr IV DIRECT MICHELLE Last Admin: 11/15/16 08:37 Dose: 75 mls/hr Labetalol HCl (Normodyne) 5 mg IV Q4H PRN PRN Reason: BP >180/110 Magnesium Hydroxide (Milk Of Magnesia) 30 ml PO Q4H PRN PRN Reason: Constipation Last Admin: 11/14/16 15:17 Dose: 30 ml Meclizine HCl (Antivert) 25 mg PO Q8H PRN PRN Reason: Vertigo Last Admin: 11/15/16 05:58 Dose: 25 mg Metoclopramide HCl (Reglan) 10 mg PO Q6H PRN PRN Reason: Nausea And Vomiting Ondansetron HCl (Zofran) 4 mg IV Q8H PRN PRN Reason: N/V unrelieved by Reglan Promethazine HCl (Phenergan) 25 mg SC Q6H PRN PRN Reason: Nausea And Vomiting Simvastatin (Zocor) 20 mg PO QHS MICHELLE Last Admin: 11/14/16 21:27 Dose: 20 mg Sodium Chloride (Sodium Chloride Flush Syringe 10 Ml) 10 ml IV PRN PRN PRN Reason: LINE FLUSH Review of Systems All systems: negative Constitutional: fatigue, weakness, malaise, lethargy, poor appetite Neurological: vertigo, headaches, balance difficulties, gait dysfunction, no hearing difficulties Physical Examination - Vital Signs Vital Signs: Vital Signs Temp Pulse Resp BP Pulse Ox 98.7 F 82 19 149/103 100 11/13/16 09:52 11/13/16 09:52 11/13/16 09:52 11/13/16 09:52 11/13/16 09:52 - Constitutional General appearance: uncomfortable - EENT EENT: Present: ATNC, PERRL, mucous membranes moist, hearing intact, vision intact - Respiratory Respiratory: Present: chest non-tender, normal breath sounds, no respiratory distress - Cardiovascular Cardiovascular: Present: regular rate Extremities: Present: no peripheral edema bilatateraly, no clubbing, cyanosis, no inflammation, no ischemia or petechiae - Gastrointestinal Gastrointestinal: Present: normoactive bowel sounds, non-distended - Integumentary Integumentary: Present: normal - Neurologic Cranial nerve examination: PERRL, EOMI, VFF, V1/V2/V3 grossly intact, face symmetric, tongue midline, intact, intact shoulder shrug, intact cough reflex, Intact Vestibulo-ocular r, intact corneal reflex, normal palatal elevation Speech examination: intact Sensorimotor examination: intact Detailed motor examination: full strength in all mary jane Motor examination - right side: 5/5: biceps, triceps, wrist flexion, wrist extension, manager of pharmacy, hip flexors, knee extensors, dorsiflexion, toe extension (EHL) , plantarflexion Motor examination - left side: 5/5: biceps, triceps, wrist flexion, wrist extension, manager of pharmacy, hip flexors, knee extensors, dorsiflexion, toe extension (EHL) , plantarflexion Detailed sensory examination: intact, light touch, temperature Reflex and gait examination: intact Reflexes: 2+: ankle, bicep, knee, tricep - Musculoskeletal Musculoskeletal: Present: no fluid collection, no pain, normal range of motion - Psychiatric Psychiatric: Present: mood/affect appropriate, cooperative Results - Laboratory Findings CBC and BMP: 11/13/16 10:21 11/13/16 10:21 Abnormal Lab Findings: Abnormal Labs 11/14/16 04:59 Triglycerides 202 H HDL Cholesterol 34 L Assessment and Plan 41 YO F Hx HTN p/w 2 day hx of new onset intermittent dizziness "floating" sensation assoc w/ sense of movement and recurrently triggered by head/body position change causing gait unsteadiness and relieved by resting still. Neuro exam normal intact without focal deficits. MRI Brain & MRA Head neg. Clinical syn possibly consistent with BPPV w/ unclear laterality. Recs: 1. Neuro checks 2. Meclizine 12.5-25mg TID prn AND Valium 2mg TID prn 3. PT/OT 4. We can revisit as needed.
[2016-11-15 16:00] VITALS: BP 130/80
== END 2016-11-15 13:40 | disposition home or self-care (01) | DRG 312 ==
LOC: ED 09:44 → 3A 15:05
PROVIDERS: ADMIT Internal Medicine; ATTEND Hospitalist
DX: R55 Syncope and collapse (principal); R42 Dizziness and giddiness; R11.2 Nausea with vomiting, unspecified; I10 Essential (primary) hypertension; Z90.710 Acquired absence of both cervix and uterus; Z79.899 Other long term (current) drug therapy; Z98.51 Tubal ligation status
CPT/HCPCS: 36415; 70450; 70544; 70551; 80053; 80061; 80307; 81001; 82140; 82550; 82553; 82962; 84484; 84703; 85025; 85610; 93005; 93010; 93306; J7030